=== PATIENT | male | born 1975 | race Caucasian/White ===

== ENCOUNTER 2019-03-20 14:00 | Outpatient (CLI) | payer OTHER | END 2019-03-20 14:47 | disposition home or self-care (01) | LOC: SLEEP 14:00 | PROVIDERS: ATTEND Otolaryngology Otolaryngology/Facial Plastic Surgery | DX: G47.33 Obstructive sleep apnea (adult) (pediatric) (principal) ==

== ENCOUNTER 2019-11-01 09:15 | Emergency (ER) | payer SELFPAY ==
[~2019-11-01] VITALS: Ht 177.8 cm; Wt 158.8 kg
--- OUTSIDE RECORDS SUMMARY | 2019-11-01 09:21 | XMS REPORT | Continuity of Care Document ---
Author Organization Unknown Address Unknown Phone Unavailable Allergies There is no data. Medications There is no data. Problems Date Dx Coded Attending Type Code Diagnosis Diagnosed By 07/19/2017 BONIFACIO ALVAREZ R NETWORK SYSTEMS CONSULTANT Ot B35.4 TINEA CORPORIS 07/19/2017 BONIFACIO ALVAREZ R NETWORK SYSTEMS CONSULTANT Ot L89.213 PRESSURE ULCER OF RIGHT HIP, STAGE 3 07/24/2017 BONIFACIO ALVAREZ R NETWORK SYSTEMS CONSULTANT Ot B35.4 TINEA CORPORIS 07/24/2017 KIM BONIFACIO R NETWORK SYSTEMS CONSULTANT Ot L89.213 PRESSURE ULCER OF RIGHT HIP, STAGE 3 07/25/2017 BONIFACIO ALVAREZ R NETWORK SYSTEMS CONSULTANT Ot B35.4 TINEA CORPORIS 07/25/2017 KIM BONIFACIO R NETWORK SYSTEMS CONSULTANT Ot L89.213 PRESSURE ULCER OF RIGHT HIP, STAGE 3 07/27/2017 KIM BONIFACIO R NETWORK SYSTEMS CONSULTANT Ot B35.4 TINEA CORPORIS 07/27/2017 KIM, BONIFACIO R NETWORK SYSTEMS CONSULTANT Ot L89.213 PRESSURE ULCER OF RIGHT HIP, STAGE 3 07/30/2017 KIM BONIFACIO R NETWORK SYSTEMS CONSULTANT Ot B35.4 TINEA CORPORIS 07/30/2017 KIM BONIFACIO R NETWORK SYSTEMS CONSULTANT Ot L89.213 PRESSURE ULCER OF RIGHT HIP, STAGE 3 08/01/2017 KIM BONIFACIO R NETWORK SYSTEMS CONSULTANT Ot B35.4 TINEA CORPORIS 08/01/2017 KIM BONIFACIO R NETWORK SYSTEMS CONSULTANT Ot L89.213 PRESSURE ULCER OF RIGHT HIP, STAGE 3 08/09/2017 KIM BONIFACIO R NETWORK SYSTEMS CONSULTANT Ot B35.4 TINEA CORPORIS 08/09/2017 KIM BONIFACIO R NETWORK SYSTEMS CONSULTANT Ot L89.213 PRESSURE ULCER OF RIGHT HIP, STAGE 3 03/15/2019 BONIFACIO ALVAREZ R NETWORK SYSTEMS CONSULTANT Ot B35.4 TINEA CORPORIS 03/15/2019 KIM BONIFACIO R NETWORK SYSTEMS CONSULTANT Ot L89.213 PRESSURE ULCER OF RIGHT HIP, STAGE 3 03/15/2019 BONIFACIO ALVAREZ R NETWORK SYSTEMS CONSULTANT Ot B35.4 TINEA CORPORIS 03/15/2019 BONIFACIO ALVAREZ APRN Ot L89.213 PRESSURE ULCER OF RIGHT HIP, STAGE 3 03/21/2019 NELSON OLIVARES MD Ot G47.33 OBSTRUCTIVE SLEEP APNEA (ADULT) (PEDIATR Procedures There is no data. Results There is no data. Encounters ACCT No. Visit Date/Time Discharge Status Pt. Type Provider Facility Loc./Unit Complaint [id number] 03/20/2019 14:00:00 019 14:47:00 DIS Outpatient NELSON OLIVARES MD [facility] SLEEP SYEDA [id number] 07/24/2017 08:22:00 018 23:59:59 CLS Outpatient BONIFACIO ALVAREZ APRN [facility] WOUNDCARE [id number] 07/18/2017 08:08:00 018 23:59:59 CLS Outpatient BONIFACIO ALVAREZ APRN [facility] WOUNDCARE [id number] 11/01/2019 09:17:[address] Emergency LEX SCHULTE, XOCHITL [place] [facility] ER BACK/ABD PAIN
[2019-11-01] MEDS ORDERED: CITA20TA9 (09:36)
[2019-11-01] MEDS ORDERED: LOSA100T57 (09:36)
[2019-11-01] MEDS ORDERED: HYDR25TA4 (09:36)
[2019-11-01] MEDS ORDERED: CARV6.252 (09:36)
[2019-11-01] MEDS ORDERED: BUPR150T7 (09:36)
[2019-11-01] MEDS ORDERED: AMLO10TA7 (09:36)
[2019-11-01] MEDS ORDERED: fentaNYL INJECTION 100 MCG/2 ML AMP IVP ONE (09:45)
--- NOTE | 2019-11-01 09:52 | ED Abdominal Pain ---
General Chief Complaint: - Urinary Stated Complaint: BACK/ABD PAIN Nursing Triage Note: PT AMB TO [facility] WITH COMPLAINT OF LEFT SIDE KIDNEY STONE. STATES IN JULY HE WAS DIAGNOSED WITH LEFT KIDNEY STAGHORN STONE. STATES HAD NEPHROSTOMY TUBE PLACED AT [facility]. [facility] WAS SUPPOSE TO HAVE SURGERY TO REMOVE THE STONE A FEW WEEKS AGO, BUT DUE TO INSURANCE, WAS UNABLE TO HAVE SURGERY AT [place]. PT STATES HE IS HAVING A FLARE UP SINCE SUNDAY. COMPLAINING OF STABBING LEFT SIDED FLANK PAIN Sepsis Screen: No Definite Risk Source of Information: Patient Exam Limitations: No Limitations (MICHELLE GIL MED STUDENT) History of Present Illness Date Seen by Provider: Nov 01, 2019 Time Seen by Provider: 09:20 Initial Comments This 44 year old male presents today complaining of stabbing left flank pain that radiates to his back and left groin. He has a left nephrostomy tube currently, and states it was placed in July after he was found to have a large staghorn calculi while at [facility] regarding a follow-up for his bone cancer. His , who is on the phone, states that his nephrostomy tube was supposed to be removed in late September, but their insurance did not cover this being done at [place]. He states his output from the nephrostomy has been normal in appearance and quantity. He states that this current "flare-up" started on (10/29) and he had one episode of nausea and vomiting that night as well. He does admit to pain with urination, and states it feels like needles stabbing him while coming out. Timing/Duration: 2-3 Days Severity/Quality: Moderate, Sharp, Stabbing Location: LUQ, Flank Radiation: Back, Groin Associated Symptoms: Back Pain, Diaphoresis (MICHELLE GIL,THAD STUDENT) Allergies and Home Medications Allergies Coded Allergies: No Known Drug Allergies (Unverified , 11/01/19) Home Medications Ciprofloxacin HCl 500 Mg Tablet, 500 MG PO BID Prescribed by: XOCHITL LEVY on 11/01/19 155 Hydrocodone/Acetaminophen 1 Each Tablet, 1 EACH PO Q4H PRN for PAIN-MODERATE (5- 7) Prescribed by: XOCHITL LEVY on 11/01/19 155 Phenazopyridine HCl 200 Mg Tablet, 1 TAB PO TID PRN for PAIN-MODERATE (5-7) Prescribed by: XOCHITL LEVY on 11/01/19 5836 Patient Home Medication List Home Medication List Reviewed: Yes (XOCHITL BURNETT MD) Review of Systems Review of Systems Constitutional: diaphoresis EENTM: No Symptoms Reported Respiratory: No Symptoms Reported Cardiovascular: No Symptoms Reported Gastrointestinal: See HPI Genitourinary: See HPI Musculoskeletal: see HPI Skin: no symptoms reported Psychiatric/Neurological: No Symptoms Reported Endocrine: No Symptoms Reported Hematologic/Lymphatic: No Symptoms Reported (MICHELLE GIL MED STUDENT) Past Ymgyxfc-Puumcw-Knhego Hx Patient Social History Alcohol Use: Rarely Uses Recreational Drug Use: No Smoking Status: Never a Smoker Recent Foreign Travel: No Contact w/Someone Who Travel: No Recent Infectious Disease Expo: No Recent Hopitalizations: No (MICHELLE GIL MED STUDENT) Immunizations Up To Date Tetanus Booster (TDap): Unknown PED Vaccines UTD: Yes (MICHELLE GIL MED STUDENT) Seasonal Allergies Seasonal Allergies: No (MICHLELE GIL MED STUDENT) Past Medical History Surgeries: Yes (skull fx, R leg amputation) Abdominal, Amputation, Appendectomy, Orthopedic, Testicular Respiratory: No Cardiac: Yes Deep Vein Thrombosis, Hypertension Neurological: No Genitourinary: Yes (L NEPHROSTOMY, L "STAGHORN" KIDNEY STONE) Kidney Stones Gastrointestinal: Yes Abdominal Hernia Musculoskeletal: No Endocrine: No HEENT: No Cancer: Yes Bone Did You Recieve Any Treatments: Yes What Type of Treatment Did You: Chemotherapy, Surgical Intervention Psychosocial: Yes Depression Integumentary: No (MICHELLE GIL MED STUDENT) Physical Exam Vital Signs Vital Signs - First Documented 11/01/19 09:20 Temp 36.8 Pulse 98 Resp 20 B/P (MAP) 170/127 (141) Pulse Ox 97 O2 Delivery Room Air (XOCHITL BURNETT MD) Vital Signs Capillary Refill : Less Than 3 Seconds (MICHELLE GIL MED STUDENT) Height/Weight/BMI Height: '" Weight: lbs. oz. kg; 50.00 BMI Method: General Appearance: WD/WN, moderate distress (diaphoretic) Respiratory: lungs clear, no respiratory distress Cardiovascular: regular rate, rhythm, no murmur Gastrointestinal: soft, tenderness (left sided, most severe in LUQ), other (left nephrostomy tube with clear, yellow-tinged output) Extremities: other (Right AKA) (MICHELLE GIL,MED STUDENT) Progress/Results/Core Measures Results/Orders Lab Results Laboratory Tests Test 11/01/19 10:00 11/01/19 12:44 Range/Units White Blood Count 8.1 4.3-11.0 10^3/uL Red Blood Count 5.28 4.35-5.85 10^6/uL Hemoglobin 15.6 13.3-17.7 G/DL Hematocrit 45 40-54 % Mean Corpuscular Volume 85 80-99 FL Mean Corpuscular Hemoglobin 30 25-34 PG Mean Corpuscular Hemoglobin Concent 35 32-36 G/DL Red Cell Distribution Width 13.7 10.0-14.5 % Platelet Count 258 130-400 10^3/uL Mean Platelet Volume 10.4 7.4-10.4 FL Neutrophils (%) (Auto) 66 42-75 % Lymphocytes (%) (Auto) 22 12-44 % Monocytes (%) (Auto) 11 0-12 % Eosinophils (%) (Auto) 1 0-10 % Basophils (%) (Auto) 1 0-10 % Neutrophils # (Auto) 5.4 1.8-7.8 X 10^3 Lymphocytes # (Auto) 1.8 1.0-4.0 X 10^3 Monocytes # (Auto) 0.9 0.0-1.0 X 10^3 Eosinophils # (Auto) 0.0 0.0-0.3 10^3/uL Basophils # (Auto) 0.0 0.0-0.1 10^3/uL Urine Color YELLOW YELLOW Urine Clarity CLOUDY CLEAR Urine pH 8.0 5.5 5-9 Urine Specific Bryan 1.020 >=1.030 1.016-1.022 Urine Protein 3+ H 2+ H NEGATIVE Urine Glucose (UA) NEGATIVE NEGATIVE NEGATIVE Urine Ketones NEGATIVE NEGATIVE NEGATIVE Urine Nitrite NEGATIVE NEGATIVE NEGATIVE Urine Bilirubin NEGATIVE NEGATIVE NEGATIVE Urine Urobilinogen 0.2 0.2 < = 1.0 MG/DL Urine Leukocyte Esterase 2+ H 1+ H NEGATIVE Urine RBC (Auto) 3+ H 1+ H NEGATIVE Urine RBC TNTC H 25-50 H /HPF Urine WBC TNTC H 50-100 H /HPF Urine Crystals PRESENT H PRESENT H /LPF Urine Calcium Oxalate Crystals FEW H /LPF Urine Amorphous Sediment MOD RUSTY URATES H FEW RUSTY URATES H /LPF Urine Bacteria MODERATE H MODERATE H /HPF Urine Casts NONE NONE /LPF Urine Mucus NEGATIVE NEGATIVE /LPF Urine Culture Indicated YES YES Sodium Level 137 135-145 MMOL/L Potassium Level 3.9 3.6-5.0 MMOL/L Chloride Level 103 98-107 MMOL/L Carbon Dioxide Level 19 L 21-32 MMOL/L Anion Gap 15 H 5-14 MMOL/L Blood Urea Nitrogen 18 7-18 MG/DL Creatinine 1.52 H 0.60-1.30 MG/DL Estimat Glomerular Filtration Rate 50 BUN/Creatinine Ratio 12 Glucose Level 231 H 70-105 MG/DL Calcium Level 9.8 8.5-10.1 MG/DL Corrected Calcium 9.5 8.5-10.1 MG/DL Total Bilirubin 1.1 H 0.1-1.0 MG/DL Aspartate Amino Transf (AST/SGOT) 19 5-34 U/L Alanine Aminotransferase (ALT/SGPT) 24 0-55 U/L Alkaline Phosphatase 102 40-136 U/L C-Reactive Protein High Sensitivity 4.92 H 0.00-0.50 MG/DL Total Protein 8.6 H 6.4-8.2 GM/DL Albumin 4.4 3.2-4.5 GM/DL Lipase 23 8-78 U/L Urine Squamous Epithelial Cells NONE /HPF (XOCHITL BURNETT MD) My Orders Orders - XOCHITL BURNETT MD Cbc With Automated Diff (11/01/19 09:42) Comprehensive Metabolic Panel (11/01/19 09:42) Hs C Reactive Protein (11/01/19 09:42) Ua Culture If Indicated (11/01/19 09:42) Fentanyl Injection (Sublimaze Injection (11/01/19 09:45) Ed Iv/Invasive Line Start (11/01/19 09:43) Urine Culture (11/01/19 10:00) Morphine Injection (Morphine Injection (11/01/19 11:51) Morphine Injection (Morphine Injection (11/01/19 11:50) Urinalysis (11/01/19 12:44) Urine Culture (11/01/19 12:44) Ct Abd/Pelvis Wo(Kidney Stone) (11/01/19 13:09) Ceftriaxone For Iv Use (Rocephin For I (11/01/19 14:00) Lipase (11/01/19 13:59) Hyoscyamine Sl Tablet (Levsin Sl Tablet) (11/01/19 14:45) Ns Iv 1000 Ml (Sodium Chloride 0.9%) (11/01/19 14:36) Hydrocodone/Apap 5/325 Tablet (Lortab 5 (11/01/19 16:30) Hydrocodone/Apap 5/325 Tablet (Lortab 5 (11/01/19 16:17) Ondansetron Oral Dissolve Tab (Zofran (11/01/19 16:30) (XOCHITL BURNETT MD) Medications Given in ED Current Medications Medications Dose Ordered Sig/Bryan Route Start Time Stop Time Status Last Admin Dose Admin Acetaminophen/ Hydrocodone Bitart 1 tab ONCE ONCE PO 11/01/19 16:30 11/01/19 16:31 11/01/19 16:24 1 TAB Ceftriaxone Sodium 1000 mg/ Sterile Water 10 ml @ 200 mls/hr ONCE ONCE IV 11/01/19 14:00 11/01/19 14:02 DC 11/01/19 14:53 200 MLS/HR Fentanyl Citrate 50 mcg ONCE ONCE IVP 11/01/19 09:45 11/01/19 09:46 DC 11/01/19 10:03 50 MCG Hyoscyamine Sulfate 0.25 mg ONCE ONCE SL 11/01/19 14:45 11/01/19 14:46 DC 11/01/19 14:53 0.25 MG (XOCHITL BURNETT MD) Vital Signs/I&O 11/01/19 09:20 Temp 36.8 Pulse 98 Resp 20 B/P (MAP) 170/127 (141) Pulse Ox 97 O2 Delivery Room Air (XOCHITL BURNETT MD) Blood Pressure Mean: 141 Diagnostic Imaging Diagonstic Imaging: CT Plain Films/CT/US/NM/MRI: abdomen, pelvis Comments CT abdomen and pelvis viewed by me and report reviewed. See report below: NAME: KJGilaFREDERIC QUIROGAIP Benja [facility] REC#: [id number] PT STATUS: REG ER : 1975 PHYSICIAN: XOCHITL BURNETT MD ADMIT DATE: 11/01/19/ER Draft Date of Exam:11/01/19 CT ABD/PELVIS WO(KIDNEY STONE) EXAMINATION: CT Abdomen Pelvis without contrast. TECHNIQUE: Multiple contiguous axial images were obtained through the abdomen and pelvis without the use of intravenous contrast. All CT scans use one or more of the following dose optimizing techniques: automated exposure control, MA and/or KvP adjustment based on a patient size and exam type, or iterative reconstruction. HISTORY: Flank pain, kidney stone COMPARISON: None available. FINDINGS: Limited views of the lower thorax are unremarkable. Liver is steatotic. No focal liver lesions are seen. There is no biliary ductal dilation. Gallbladder is normal. Pancreas is normal. Spleen is normal. Adrenal glands are normal. There is a 3.4 x 2.1 cm stone in the left renal pelvis. There are several additional smaller stones. Percutaneous nephrostomy catheter is present and situated within the renal pelvis. No hydronephrosis is seen. Urinary bladder is normal. Visualized bowel is normal in caliber without obstruction or inflammation. No free fluid or air. No abdominal or pelvic lymphadenopathy. Aorta is normal in caliber without aneurysm. There are no suspicious osseus lesions. There is large calcified disc bulge at L4-L5. IMPRESSION: 1. Left renal pelvis stone measuring up to 3.4 cm with several additional smaller stones. There is no hydronephrosis. Percutaneous nephrostomy appears to be in appropriate position. Dictated on workstation # [id number] Dict: 11/01/19 1336 Trans: 11/01/19 1342 CV [id number] Interpreted by: LUANNE ALVAREZ MD (XOCHITL BURNETT MD) Departure Impression Primary Impression: Urinary tract infection Qualified Codes: N39.0 - Urinary tract infection, site not specified; R31.9 - Hematuria, unspecified Additional Impressions: Left sided abdominal pain Renal insufficiency Disposition: 01 HOME, SELF-CARE Condition: Improved Departure-Patient Inst. Decision time for Depature: 15:49 (XOCHITL BURNETT MD) Referrals: MAKENZIE SHAVER DO (PCP/Family) Primary Care Physician Patient Instructions: Urinary Tract Infection, Adult (DC) Add. Discharge Instructions: Drink plenty of clear liquids. Complete your antibiotics as prescribed. Follow-up with your primary care provider on Sunday or Sunday to review urine culture results. Work with your urologist at [facility] or your primary care provider to expedite a referral to a local urologist. Use your pain medication as prescribed. Return to care if you have worsening symptoms in the meantime or you develop new symptoms such as fever, vomiting, etc. All discharge instructions reviewed with patient and/or family. Voiced understanding. Scripts Ondansetron (Ondansetron Odt) 4 Mg Tab.rapdis 4 MG SL Q4H PRN for NAUSEA/VOMITING, #10 TAB Prov: XOCHITL BURNETT MD 11/01/19 Hydrocodone/Acetaminophen (Hydrocodone-Acetamin 5-325 mg) 1 Each Tablet 1 EACH PO Q4H PRN for PAIN-MODERATE (5-7), #10 TAB Prov: XOCHITL BURNETT MD 11/01/19 Phenazopyridine HCl (Pyridium) 200 Mg Tablet 1 TAB PO TID PRN for PAIN-MODERATE (5-7), #10 TAB Prov: XOCHITL BURNETT MD 11/01/19 Ciprofloxacin HCl (Ciprofloxacin HCl) 500 Mg Tablet 500 MG PO BID, #14 TAB Prov: XOCHITL BURNETT MD 11/01/19 This patient was interviewed and examined along with Michelle Gil, MS 4. I agree with her documentation, history, physical, and assessments with the following additions and changes This 44-year-old gentleman presents to the emergency room with left sided abdominal pain. He presently has a left nephrostomy tube that was placed August 19 at [facility]. 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 He had intended to follow up at the [facility] but had insurance complications. They made some adjustments with his insurance and now intend to follow-up locally. He believes both her doctor Sandy and Dr. De La Cruz are covered on his insurance. Dr. De La Cruz is not rehabilitation assistant this weekend. I called to discuss the situation with Dr. Maria who is urologist on-call for [facility]. From his perspective there is nothing to emergently treat as long as the nephrostomy tube is in good position. CT was obtained showing nephrostomy tube in good position. There is no evidence of hydronephrosis or abscess. No other abnormalities were seen on the CT scan. Patient was treated with fentanyl followed by morphine followed by hydrocodone for pain. Levsin was trialed for the cramping sensation but did not improve his symptoms. Patient was given Rocephin for urinary tract infection. Ultimately patient was discharged with medications for symptom management and Cipro for urinary tract infection. Urine from both the nephrostomy tube and the urethra suggested infection. Exam: Gen.: Alert, oriented, intermittent distress from left-sided abdominal pain HEENT: Normocephalic and atraumatic Heart: Regular rate and rhythm without murmur Lungs: Clear to auscultation bilaterally with normal effort Abdomen: Soft, mild tenderness throughout the left abdomen, nephrostomy tube protruding from the posterior left trunk. Sutures have pulled from the skin. Subtle erythema around the insertion. Skin: Warm and dry, normal in color Neuropsych: Alert, oriented, (XOCHITL BURNETT MD) MICHELLE GIL,MED STUDENT Nov 01, 2019 09:52 XOCHITL BURNETT MD Nov 01, 2019 14:01
[2019-11-01 10:06] LABS: BILIRUBIN,URINE NEGATIVE (NEGATIVE); CLARITY,URINE CLOUDY; COLOR,URINE YELLOW; GLUCOSE, URINE (UA) NEGATIVE (NEGATIVE); KETONES,URINE NEGATIVE (NEGATIVE); LEUKOCYTE ESTERASE ,URINE 2+ (NEGATIVE); NITRITE,URINE NEGATIVE (NEGATIVE); PROTEIN,URINE 3+ (NEGATIVE)
[2019-11-01 10:09] LABS: BASOPHILS % (AUTO) 1 % (0-10); EOSINOPHILS % (AUTO) 1 % (0-10); HEMATOCRIT 45 % (40-54); HEMOGLOBIN 15.6 G/DL (13.3-17.7); LYMPHOCYTES # (AUTO) 1.8 X 10^3 (1.0-4.0); LYMPHOCYTES % (AUTO) 22 % (12-44); MEAN CORPUSCULAR HEMOGLOBIN 30 PG (25-34); MEAN CORPUSCULAR HGB CONC 35 G/DL (32-36); MEAN CORPUSCULAR VOLUME 85 FL (80-99); MEAN PLATELET VOLUME 10.4 FL (7.4-10.4); MONOCYTES # (AUTO) 0.9 X 10^3 (0.0-1.0); MONOCYTES % (AUTO) 11 % (0-12); NEUTROPHILS # (AUTO) 5.4 X 10^3 (1.8-7.8); NEUTROPHILS % (AUTO) 66 % (42-75); PLATELET COUNT 258 10^3/uL (130-400); RED CELL DISTRIBUTION WIDTH 13.7 % (10.0-14.5); WHITE BLOOD COUNT 8.1 10^3/uL (4.3-11.0)
[2019-11-01 10:23] LABS: AMORPHOUS SEDIMENT,UR MOD AMOR URATES /LPF; BACTERIA,URINE MODERATE /HPF; RBC,URINE TNTC /HPF; WBC,URINE TNTC /HPF
[2019-11-01 10:24] LABS: ALBUMIN 4.4 GM/DL (3.2-4.5); BILIRUBIN,TOTAL 1.1 MG/DL (0.1-1.0); CALCIUM 9.8 MG/DL (8.5-10.1); CALCIUM OXALATE CRYSTALS,UR FEW /LPF; CREATININE SERUM 1.52 MG/DL (0.60-1.30); POTASSIUM 3.9 MMOL/L (3.6-5.0); TOTAL PROTEIN 8.6 GM/DL (6.4-8.2)
[2019-11-01] MEDS ORDERED: morphine INJ 10 MG/ML 1ML (SYR OR VIAL) ONE (11:50)
[2019-11-01] MEDS ORDERED: morphine INJ 10 MG/ML 1ML (SYR OR VIAL) IVP STA (11:51)
[2019-11-01 12:54] LABS: BILIRUBIN,URINE NEGATIVE (NEGATIVE); CLARITY,URINE CLEAR; COLOR,URINE YELLOW; GLUCOSE, URINE (UA) NEGATIVE (NEGATIVE); KETONES,URINE NEGATIVE (NEGATIVE); LEUKOCYTE ESTERASE ,URINE 1+ (NEGATIVE); NITRITE,URINE NEGATIVE (NEGATIVE); PH,URINE 5.5 (5-9); PROTEIN,URINE 2+ (NEGATIVE)
[2019-11-01 13:06] LABS: RBC,URINE 25-50 /HPF; WBC,URINE 50-100 /HPF
[2019-11-01 13:07] LABS: AMORPHOUS SEDIMENT,UR FEW AMOR URATES /LPF; BACTERIA,URINE MODERATE /HPF
--- NOTE | 2019-11-01 13:41 | Diagnostic Imaging Report ---
EXAMINATION: CT Abdomen Pelvis without contrast. TECHNIQUE: Multiple contiguous axial images were obtained through the abdomen and pelvis without the use of intravenous contrast. All CT scans use one or more of the following dose optimizing techniques: automated exposure control, MA and/or KvP adjustment based on a patient size and exam type, or iterative reconstruction. HISTORY: Flank pain, kidney stone COMPARISON: None available. FINDINGS: Limited views of the lower thorax are unremarkable. Liver is steatotic. No focal liver lesions are seen. There is no biliary ductal dilation. Gallbladder is normal. Pancreas is normal. Spleen is normal. Adrenal glands are normal. There is a 3.4 x 2.1 cm stone in the left renal pelvis. There are several additional smaller stones. Percutaneous nephrostomy catheter is present and situated within the renal pelvis. No hydronephrosis is seen. Urinary bladder is normal. Visualized bowel is normal in caliber without obstruction or inflammation. No free fluid or air. No abdominal or pelvic lymphadenopathy. Aorta is normal in caliber without aneurysm. There are no suspicious osseus lesions. There is large calcified disc bulge at L4-L5. IMPRESSION: 1. Left renal pelvis stone measuring up to 3.4 cm with several additional smaller stones. There is no hydronephrosis. Percutaneous nephrostomy appears to be in appropriate position. Dictated by: Dictated on workstation # [id number]
[2019-11-01] MEDS ORDERED: cefTRIAXone FOR IV USE 1,000 MG in WATER (STERILE) FOR INJECTION 10 ML IV ONE (14:00)
[2019-11-01] MEDS ORDERED: NS IV 1000 ML 1,000 ML IV SCH (14:36)
[2019-11-01] MEDS ORDERED: HYOSCYAMINE 0.125 MG (LEVSIN) TAB SL ONE (14:45)
[2019-11-01] MEDS ORDERED: HYDR-3812 PO (15:52)
[2019-11-01] MEDS ORDERED: PHEN-640 PO (15:52)
[2019-11-01] MEDS ORDERED: CIPR500T4 PO (15:52)
[2019-11-01] MEDS ORDERED: HYDROcodone/APAP 5 MG/325 MG (LORTAB) TAB ONE (16:17)
[2019-11-01] MEDS ORDERED: HYDROcodone/APAP 5 MG/325 MG (LORTAB) TAB PO ONE (16:30)
[2019-11-01] MEDS ORDERED: ONDANSETRON 4 MG (ZOFRAN) ORAL DISSOLVE TAB SL ONE (16:30)
[2019-11-01] MEDS ORDERED: ONDA4TAB11 SL (16:32)
[2019-11-01 16:47] VITALS: BP 170/115
== END 2019-11-01 16:47 | disposition home or self-care (01) ==
LOC: EDUNIT# 09:15 → ER 09:17
DX: N39.0 Urinary tract infection, site not specified (principal); N20.0 Calculus of kidney; N28.9 Disorder of kidney and ureter, unspecified; Z93.6 Other artificial openings of urinary tract status; Z85.830 Personal history of malignant neoplasm of bone
CPT/HCPCS: 36415; 74176; 80053; 81000; 83690; 85025; 86141; 87077; 87088; 87186